=== PATIENT | male | born 1970 | race Caucasian/White ===

== ENCOUNTER 2016-10-27 12:16 | Emergency (ER) | payer SELFPAY ==
--- NOTE | 2016-10-27 12:45 | ED Physician Chart ---
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 He turned after which he had pain in his left mid back and his left shoulder. He did not fall down. There was no other trauma. Allergies:: Allergies Allergy/AdvReac Type Severity Reaction Status Date / Time No Known Allergies Allergy Verified 10/27/16 12:32 Vitals:: Vital Signs - 8 hr 10/27/16 12:25 Temp 98.1 F HR 111 RR 20 BP 151/100 O2 Sat % 99 Historian:: Patient Review:: Nurse's Note Reviewed Review of Systems - Review of Systems General/Constitutional: No fever, No chills Skin: No skin lesions Head: No headache Eyes: No loss of vision ENT: No earache Neck: No neck pain Cardio Vascular: No chest pain Pulmonary: No SOB, No cough GI: No nausea, No vomiting G/U: No dysuria Musculoskeletal: Bone or joint pain Psychiatric: No prior psych history Hematopoietic: No bruising Allergic/Immuno: No urticaria Neurological: No syncope, No focal symptoms Past Medical History - Past Medical History Past Medical History: No significant medical hx Family History: None Social History: Non Smoker, No Alcohol Surgical History: None Psychiatricy History: None Medication: None Physical Exam - Physical Examination General/Constitutional: Well-developed, well-nourished, Alert, No distress Head: Atraumatic Eyes: Lids, conjuctiva normal, PERRL Skin: Nl inspection ENMT: External ears, nose nl, TM canals nl, Nasal exam nl, Lips, teeth, gums nl Neck: No nuchal rigidity Respiratory: Nl effort/Exclusion, Clear to Auscultation, No Wheeze/Rhonchi/Rales Cardio Vascular: RRR GI: No tenderness/rebounding/guarding, No organomegaly, No hernia Other Extremities comments:: Mild left shoulder tenderness without deformity Neuro/Psych: No focal deficits Other Neuro/Psych comments:: Straight leg raising of 90 bilaterally Other Misc comments:: Left mid back tenderness Labs/Radiology/EKG Results - Radiology Results Results: Chest x-ray negative; no cardiomegaly; no infiltrate; ribs normal ED Septic Shock - . Is Septic Shock (SBP<90, OR Lactate>4 mmol\L) present?: No - <6hrs of presentation: Vital Signs: Vital Signs - 8 hr 10/27/16 12:25 Temp 98.1 F HR 111 RR 20 BP 151/100 O2 Sat % 99 Reassessment (Disposition) - Reassessment Reassessment Condition:: Unchanged - Diagnosis Diagnosis:: Back strain; left shoulder strain - Aftercare/Follow up Instructions Aftercare/Follow-Up Instructions:: Refer to Discharge Instructions - Patient Disposition Discharge/Transfer:: Home Condition at Disposition:: Stable, Unchanged
--- NOTE | 2016-10-27 13:25 | Diagnostic Imaging Report ---
CHEST X-RAY: AP view INDICATION: Left mid back pain, minimal trauma COMPARISON: None FINDINGS: Right upper lobe subsegmental atelectasis versus scarring is noted. There is no focal consolidation or pleural effusions The heart is normal in size. The osseous structures are intact. IMPRESSION: No focal consolidation identified. No evidence of pneumothorax. Right upper lobe subsegmental atelectasis versus scarring.
== END 2016-10-27 13:10 | disposition home or self-care (01) ==
LOC: ER 12:16
DX: S46.912A Strain of unspecified muscle, fascia and tendon at shoulder and upper arm level, left arm, initial encounter (principal); S29.012A Strain of muscle and tendon of back wall of thorax, initial encounter; X58.XXXA Exposure to other specified factors, initial encounter; Y93.89 Activity, other specified; Y92.89 Other specified places as the place of occurrence of the external cause; Y99.8 Other external cause status
CPT/HCPCS: 99283; 96372; 71010; J1885; Z7502

== ENCOUNTER 2016-11-09 14:13 | Inpatient (IN) | payer SELFPAY ==
--- NOTE | 2016-11-09 14:39 | ED Physician Chart ---
Chief Complaint/HPI - Patient Information Date Seen:: 11/09/16 Time Seen:: 14:30 Chief Complaint:: Vomiting History of Present Illness:: onset x one week of intermittent N/V/D x 10; denies A/C, Abd. pain, C/P, SOB, cough; admits to LBP x 2 weeks intermittently; denies gait changes, weakness, dizziness, vertigo,H/As, neck pain, or urinary s/s Allergies:: Allergies Allergy/AdvReac Type Severity Reaction Status Date / Time No Known Allergies Allergy Verified 10/27/16 12:32 Vitals:: Vital Signs - 8 hr 11/09/16 14:27 Temp 98.4 F HR 88 RR 16 BP 156/96 O2 Sat % 99 Historian:: Patient, Family Member Review of Systems - Review of Systems General/Constitutional: Fever, Chills, No weight loss, No weakness, No diaphoresis, No edema, No loss of appetite Skin: No skin lesions, No rash, No bruising Head: No headache, No light-headedness Eyes: No loss of vision, No pain, No diplopia ENT: No earache, No nasal drainage, No sore throat, No tinnitus Neck: No neck pain, No swelling, No thyromegaly, No stiffness, No mass noted Cardio Vascular: No chest pain, No palpitations, No PND, No orthopnea, No edema Pulmonary: No SOB, No cough, No sputum, No wheezing GI: Nausea, Vomiting, Diarrhea, No pain, No melena, No hematochezia, Constipation, No hematemesis G/U: No dysuria, No frequency, No hematuria Musculoskeletal: No bone or joint pain, Back pain, No muscle pain Endocrine: No polyuria, No polydipsia Psychiatric: No prior psych history, No depression, No anxiety, No suicidal ideation, No homicidal ideation, No auditory hallucination, No visual hallucination Hematopoietic: No bruising, No lymphadenopathy Allergic/Immuno: No urticaria, No angioedema Neurological: No syncope, No focal symptoms, No weakness, No paresthesia, No headache, No seizure, No dizziness, No confusion, No vertigo Past Medical History - Past Medical History Obtainable: Yes Past Medical History: HTN Family History: Diabetes Melitus, HTN Social History: Smoker, Alcohol, No Drug Use, Surgical History: None Psychiatricy History: None Medication: Reviewed Family Medical History - Family Member mother Ethnicity: Living Status: Hx Family Diabetes: Yes Physical Exam - Physical Examination General/Constitutional: Awake, Well-developed, well-nourished, Alert, No distress, GCS 15, Non-toxic appearing, Ambulatory Head: Atraumatic Eyes: Lids, conjuctiva normal, PERRL, EOMI Skin: Nl inspection, No rash, No skin lesions, No ecchymosis, Well hydrated, No lymphadenopathy ENMT: External ears, nose nl, Nasal exam nl, Lips, teeth, gums nl Neck: Nontender, Full ROM w/o pain, No JVD, No nuchal rigidity, No bruit, No mass, No stridor Respiratory: Nl effort/Exclusion, Clear to Auscultation, No Wheeze/Rhonchi/Rales Cardio Vascular: RRR, No murmur, gallop, rubs, NL S1 S2 GI: No tenderness/rebounding/guarding, No organomegaly, No hernia, Normal BS's, Nondistended, No mass/bruits, No McBurney tenderness : No CVA tenderness Extremities: No tenderness or effusion, Full ROM, normal strength in all extremities, No edema, Normal digits & nails Neuro/Psych: Alert/oriented, DTR's symmetric, Normal sensory exam, Normal motor strength, Judgement/insight normal, Mood normal, Normal gait, No focal deficits Misc: normal gait, Normal back, No paraspinal tenderness Labs/Radiology/EKG Results - Lab Results Results: ETOH: 392; K+: 3.2; Lipase: 103 ED Septic Shock - . Is Septic Shock (SBP<90, OR Lactate>4 mmol\L) present?: No - <6hrs of presentation: Vital Signs: Vital Signs - 8 hr 11/09/16 14:27 Temp 98.4 F HR 88 RR 16 BP 156/96 O2 Sat % 99 Reassessment (Disposition) - Reassessment Reassessment Condition:: Improved - Diagnosis Diagnosis:: Dx: Acute Alcohol Intoxication; Hypokalemia; Pancreatitis; Alcoholicism; Vomiting; Gastritis; AGE; alcoholic Gastritis - Aftercare/Follow up Instructions Aftercare/Follow-Up Instructions:: Counseled pt regarding lab results/diagnosis & need follow up, Counseled pt & family regarding lab results/diagnosis & need follow up - Patient Disposition Discharge/Transfer:: Acute Care w/in this hosp Accepting Physician:: Dr. Mayer Time Called:: 0 Time Responded:: 16:40 Admitted to:: Telemetry Spoke to:: Dr. Mayer Admitting Medical Physician:: Dr. Mayer Condition at Disposition:: Stable, Improved
[2016-11-09] MEDS ORDERED: Sodium Chloride 0.9% 1,000 ML IV ONE (14:43)
--- NOTE | 2016-11-09 15:06 | Diagnostic Imaging Report ---
Exam: Portable summation of chest. HISTORY: Chest pain Findings: Portable upright examination of the chest at 1452 hours was reviewed the study demonstrates no active pulmonic infiltrates or effusions. Mediastinal structures midline the heart is not enlarged bony thorax is intact. IMPRESSION no acute infiltrates
[2016-11-09 15:11] LABS: % BASOPHILS 1.6 % (0.0-2.0); % EOSINOPHILS 0.7 % (0.0-5.0); % MONOCYTES 12.2 % (2.0-10.0); % NEUTROPHILS 53.5 % (40.0-80.0); HEMATOCRIT 36.3 % (39.0-49.0); HEMOGLOBIN 11.5 gm/dL (13.2-17.3); MEAN CORPUSCULAR HEMOGLOBIN 20.5 pg (26.0-30.0); MEAN CORPUSCULAR HGB CONC 31.8 pg (28.0-36.0); MEAN PLATELET VOLUME 7.7 fl; NEUTROPHILE ABSOLUTE 2.7 Th/cmm (1.8-8.0); PLATELET COUNT 85 Th/cmm (150-400); RED BLOOD COUNT 5.62 Mil/cmm (4.30-5.70); RED CELL DISTRIBUTION WIDTH 17.3 % (11.5-20.0)
[2016-11-09 15:33] LABS: ANION GAP 15.9 (7.0-16.0); BUN - UREA NITROGEN 6 mg/dL (7-25); BUN/CREATININE RATIO 8.6; CALCIUM SERUM 9.6 mg/dL (8.6-10.3); CARBON DIOXIDE 26.3 mEq/L (21.0-31.0); CHLORIDE 97 mEq/L (98-107); CHOLESTEROL 231 mg/dL (<200); CREATININE - SERUM 0.7 mg/dL (0.7-1.3); GLUCOSE 104 mg/dL (70-105); POTASSIUM SERUM 3.2 mEq/L (3.5-5.1); SODIUM SERUM 136 mEq/L (136-145); TRIGLYCERIDES 146 mg/dL (<150)
[2016-11-09 15:38] LABS: AMYLASE SERUM 84 U/L (29-103); LIPASE 103 U/L (11-82)
[2016-11-09 15:40] LABS: TROP I 0.02 ng/mL (0.01-0.05)
[2016-11-09 15:47] LABS: PROTHROMBIN TIME (TEST) 10.4 SECONDS (9.5-11.5)
[2016-11-09] MEDS ORDERED: Potassium Chloride 20 mEq ER Tab PO ONE ×2 (16:01→16:17)
[2016-11-09] MEDS ORDERED: Multivitamin Inj 10 ML, Thiamine HCL 100 MG, Magnesium Sulfate 2 GM, Folic Acid 1 MG in... IV ONE (17:00)
[2016-11-09 18:43] LABS: MEAN CELL VOLUME 64.6 fl (80-99)
[2016-11-09 18:45] LABS: BNP < 5.0 pg/mL (5.0-100.0)
[2016-11-09 22:40] LABS: CREATINE KINASE MB 4.4 ng/mL (0.6-6.3)
[2016-11-10 06:25] LABS: HEMATOCRIT 34.3 % (39.0-49.0); HEMOGLOBIN 10.8 gm/dL (13.2-17.3); MEAN CORPUSCULAR HEMOGLOBIN 20.7 pg (26.0-30.0); MEAN CORPUSCULAR HGB CONC 31.5 pg (28.0-36.0); MEAN PLATELET VOLUME 8.2 fl; PLATELET COUNT 74 Th/cmm (150-400); RED BLOOD COUNT 5.23 Mil/cmm (4.30-5.70); RED CELL DISTRIBUTION WIDTH 17.7 % (11.5-20.0); WHITE BLOOD COUNT 4.2 Th/cmm (4.8-10.8)
[2016-11-10 07:06] LABS: ALB/GLOB RATIO 1.3 (1.0-1.8); ALKALINE PHOSPHATASE 121 U/L (34-104); ANION GAP 11.6 (7.0-16.0); BILIRUBIN,TOTAL 1.8 mg/dL (0.3-1.0); BUN - UREA NITROGEN 4 mg/dL (7-25); BUN/CREATININE RATIO 6.7; CALCIUM SERUM 9.1 mg/dL (8.6-10.3); CARBON DIOXIDE 27.4 mEq/L (21.0-31.0); CHLORIDE 101 mEq/L (98-107); CREATININE - SERUM 0.6 mg/dL (0.7-1.3); GLUCOSE 88 mg/dL (70-105); LIPASE 77 U/L (11-82); SGOT 165 U/L (13-39); SGPT/ALT 141 U/L (7-52); SODIUM SERUM 137 mEq/L (136-145)
[2016-11-10 07:25] LABS: MEAN CELL VOLUME 65.6 fl (80-99)
[2016-11-10] MEDS ORDERED: Potassium Chloride 20 mEq ER Tab PO ONE (07:42)
[2016-11-10] MEDS: Lactulose 10 Gm/15 mL 30mL UDC PO SCH ×2 (08:34→17:37)
[2016-11-10] MEDS ORDERED: Pantoprazole 40 mg EC Tab PO SCH (09:00)
[2016-11-10] MEDS ORDERED: Multivitamin Inj 10 ML, Thiamine HCL 100 MG, Magnesium Sulfate 2 GM, Folic Acid 1 MG in... IV SCH (09:27)
[2016-11-10 09:53] LABS: ANISOCYTOSIS 1+; BAND NEUTROPHILE 1 % (0-10); BASOPHIL 2 % (0-3); EOSINOPHIL 4 % (0-5); MICROCYTOSIS 3+; NEUTROPHILS 53 % (40-80); PLATELET ESTIMATE DECREASED PLATELETS (NORMAL); PLATELET MORPHOLOGY NORMAL (NORMAL); TOTAL CELLS COUNTED 100
--- NOTE | 2016-11-10 17:34 | Operative Report ---
DATE OF SURGERY: 11/10/2016 INPATIENT GASTROINTESTINAL PROCEDURE PROCEDURE: EGD with biopsy. REFERRING PHYSICIAN: Dr. Mayer. REASON FOR PROCEDURE: Upper GI bleed. CONSENT: Risks, benefits, alternatives, nature, indication, possible outcomes were discussed. Mentioned bleeding, infection, perforation, , disability, cardiopulmonary distress and arrest, missed lesion and cancers, need for surgery. The patient expressed understanding and provided informed consent. PREOPERATIVE DIAGNOSIS: Upper gastrointestinal bleed. POSTOPERATIVE DIAGNOSIS: Esophagitis. MEDICATIONS: MAC provided by anesthesiologist. DESCRIPTION OF PROCEDURE: The patient was placed on left side. Upper endoscope was advanced from the mouth to second portion of duodenum. Scope brought back in the stomach. Retroflexion view of fundus, cardia, lesser curvature. Scope was straightened and slowly withdrawn through esophagus and biopsies were taken of the esophagus. Scope was then removed. COMPLICATIONS: None. FINDINGS: 1. GE junction at 41 cm with a moderate esophagitis, likely source of bleeding. Biopsies were taken. 2. Normal stomach status post biopsy. 3. Normal duodenum. RECOMMENDATIONS: 1. Follow up on biopsy. 2. Follow H and H, transfuse as needed. 3. Provide the patient with Protonix. 4. Avoid alcohol. 5. Consider repeat EGD in a year. Thank you for allowing me to participate. Please call me if any questions. JOB# [id number]
[2016-11-11 06:14] LABS: HEMATOCRIT 34.2 % (39.0-49.0); MEAN CORPUSCULAR HEMOGLOBIN 20.7 pg (26.0-30.0); MEAN CORPUSCULAR HGB CONC 32.1 pg (28.0-36.0); PLATELET COUNT 67 Th/cmm (150-400); RED BLOOD COUNT 5.31 Mil/cmm (4.30-5.70); RED CELL DISTRIBUTION WIDTH 17.2 % (11.5-20.0)
[2016-11-11 06:16] LABS: MEAN CELL VOLUME 64.4 fl (80-99); WHITE BLOOD COUNT 5.5 Th/cmm (4.8-10.8)
[2016-11-11 06:42] LABS: BUN - UREA NITROGEN 6 mg/dL (7-25); CALCIUM SERUM 9.6 mg/dL (8.6-10.3); CHLORIDE 102 mEq/L (98-107); CREATININE - SERUM 0.6 mg/dL (0.7-1.3); GLUCOSE 98 mg/dL (70-105); MAGNESIUM 2.2 mg/dL (1.9-2.7); SODIUM SERUM 135 mEq/L (136-145)
--- NOTE | 2016-11-11 07:39 | Consultation ---
DATE OF CONSULTATION: 11/10/2016 INPATIENT GASTROINTESTINAL CONSULTATION REFERRING PHYSICIAN: Dr. Mayer. REASON FOR CONSULTATION: Upper GI bleed in the form of hematemesis. HISTORY OF PRESENT ILLNESS: A 46-year-old male who drinks alcohol, came to the hospital with some nausea and vomiting for the last 10 days associated with some coffee-ground emesis, hematemesis. The patient denies having any abdominal pain, melena or hematochezia. PAST MEDICAL HISTORY: Alcohol abuse. PAST SURGICAL HISTORY: None to add recently. FAMILY HISTORY: Noncontributory. SOCIAL HISTORY: Drinks alcohol. No tobacco or IV drug usage. ALLERGIES: None. CURRENT MEDICATIONS: Librium, lactulose, Zestril, Ativan, Zofran, Protonix. REVIEW OF SYSTEMS: Notable for the upper GI bleeding. All other systems were otherwise negative. PHYSICAL EXAMINATION: VITAL SIGNS: Temperature 98.4, breathing 18, pulse of 75, blood pressure 162/88, satting 95%. GENERAL: No apparent distress. EYES: Anicteric, normal conjunctivae. HEENT: Normocephalic, atraumatic. Moist mucous membranes. NECK: Soft, supple. CHEST: Clear. No ____. CARDIOVASCULAR: Regular rate and rhythm. ABDOMEN: Soft, nontender, nondistended. SKIN: Warm, dry. EXTREMITIES: Reveal no cyanosis. LABORATORY DATA: Show a T-bili 1.8, AST 165, ALT 141, alk phos 121, ammonia 101. Lipase 77. Alcohol 392. White count 4.2, hemoglobin 10.8, platelets of 74. 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 Maddrey's score is less than 32. Therefore, ____ glucocorticosteroids or Trental is not needed at this time. The patient can have an endoscopy to evaluate the source of his bleeding. He should avoid entering alcohol and join a long-term rehab program. His ammonia level was elevated, which may suggest that he has underlying liver disease such as cirrhosis for the consumption of alcohol, lactulose is being instituted. PLAN: 1. EGD. 2. Continue Protonix. 3. Follow H and H and transfuse as needed. 4. Continue lactulose. 5. Consider the addition of Xifaxan. 6. Obtain abdominal ultrasound and viral hepatitis panel. Thank you for allowing me to participate. Please call me if any questions. JOB# [id number]
[2016-11-11 07:50] LABS: BAND NEUTROPHILE 0 % (0-10); EOSINOPHIL 3 % (0-5); NEUTROPHILS 50 % (40-80); TOTAL CELLS COUNTED 100
[2016-11-11] MEDS ORDERED: Potassium Chloride 40 MEQ, Lidocaine 1% 20mL Vial 25 MG in Sodium Chloride 0.9% 250 ML IV ONE (07:55)
[2016-11-11] MEDS: Lactulose 10 Gm/15 mL 30mL UDC PO SCH (09:19)
[2016-11-11] MEDS ORDERED: Potassium Chloride 20 mEq ER Tab PO ONE (09:49)
--- NOTE | 2016-11-11 10:23 | Diagnostic Imaging Report ---
Ultrasound abdomen HISTORY: Hepatitis COMPARISON: None Technique: Sonography of the abdomen was performed in multiple planes. FINDINGS: Exam is limited due to body habitus. The liver demonstrates mild increased echogenicity with no evidence of focal lesions. The liver measures 16.9 cm. There is suggestion of small amount of gallbladder sludge. No discrete gallstones identified. The gallbladder wall measures 3 mm. The common bile duct measures 4 mm. Evaluation of the pancreas is limited due to bowel gas. The right kidney measures 12.2 cm. No evidence of focal lesions or hydronephrosis. The left kidney measures 12.5 cm. No evidence of focal lesions or hydronephrosis. The spleen measures 14.4 cm. IMPRESSION: Small amount of gallbladder sludge suspected. No discrete gallstones identified. Borderline prominent gallbladder wall is noted, nonspecific. Mild splenomegaly. Liver at the upper limits of normal in size. There is mild increased echogenicity of the liver which may be due to underlying hepatocellular disease, please correlate with liver function tests.
[2016-11-11 11:13] LABS: HEP B CORE IGM Negative (Negative); HEP C ANTIBODY 0.1 s/co ratio (0.0-0.9)
[2016-11-12 11:14] LABS: FERRITIN 1607 ng/mL (30-400); IRON SATURATION 83 % (15-55); TIBC (LCI) 271 ug/dL (250-450); UIBC 46 ug/dL (111-343)
== END 2016-11-11 13:30 | disposition home or self-care (01) | DRG 377 ==
LOC: ER 14:13 → TELE 16:55
PROVIDERS: ADMIT Internal Medicine; ATTEND Internal Medicine
PROC: 0DB58ZX Excision of Esophagus, Via Natural or Artificial Opening Endoscopic, Diagnostic (ICD-10-PCS; principal; 2016-11-10)
DX: K92.2 Gastrointestinal hemorrhage, unspecified (principal); K85.90 Acute pancreatitis without necrosis or infection, unspecified; D61.818 Other pancytopenia; E72.20 Disorder of urea cycle metabolism, unspecified; K70.10 Alcoholic hepatitis without ascites; F10.129 Alcohol abuse with intoxication, unspecified; I10 Essential (primary) hypertension; E87.6 Hypokalemia; K20.9 Esophagitis, unspecified; F17.210 Nicotine dependence, cigarettes, uncomplicated; K29.20 Alcoholic gastritis without bleeding; Y90.8 Blood alcohol level of 240 mg/100 ml or more; Z82.49 Family history of ischemic heart disease and other diseases of the circulatory system; Z83.3 Family history of diabetes mellitus
CPT/HCPCS: 36415-UA; 71010-TC; 76700-TC; 80048-TC; 80053-TC; 80061-TC; 80074-90; 80320-TC; 82140-TC; 82150-TC; 82550-TC; 82553; 82728-90; 83540-90; 83550-90; 83690-TC; 83735-TC; 83880-TC; 84484-TC; 85007-TC; 85025-TC; 85027-TC; 85610-TC; 88305-90; 88312-90; 88313-90; 93005; C9113; J2001; J2405; J3411; J3475; J3480; J7030; X6598; Z7610

== ENCOUNTER 2016-12-05 00:19 | Emergency (ER) | payer SELFPAY ==
--- NOTE | 2016-12-05 00:58 | ED Physician Chart ---
Chief Complaint/HPI - Patient Information Date Seen:: 12/05/16 Time Seen:: 12:40 Chief Complaint:: Pt has an alcohol problem. History of Present Illness:: Brought in by his nephew Mr. Flakito Deleon because pt has been consuming alcohol. Pt speaks adequate Englsih but is primarily Kinyarwanda speaking. Interpretation is also provided by his nephew Mr. Flakito Deleon per pt's request. Pt has no specific complaint. Pt denies any bodily pain. Pt has h/o HTN but apparently he has not been compliant with his antihypertensive medical therapy. Pt has been informed about the importance of being compliant with his antihypertensive therapy, as well as the risks associated with uncontrolled or poorly controlled HTN. He has also been explained about health risks associated with chronic alcohol use. He has been encouraged to enroll in an alcohol detox program. Pt was asked about the name of his PCP, the medication he is supposed to take, and the amount of alcohol he consumed earlier. Pt became upset. Pt got up of the bed on his own quickly without assistance. He then put on his own shoes and just walked out of the ER steadily and swiftly. Pt was alert and oriented x 3. Prior to his departure. Pt's repeat BP was 158/99. His nephew Mr. Flakito Deleon stated that he will drive pt home and care for him. He will take pt to his PCP for further evaluation and treatment later today. Mr. Deleon has been informed that pt may return here for further evaluation/management if he changes his mind and decides to return. Pt eloped without completion of this ER visit. Allergies:: Allergies Allergy/AdvReac Type Severity Reaction Status Date / Time No Known Allergies Allergy Verified 12/05/16 00:30 Vitals:: Vital Signs - 8 hr 12/05/16 00:20 Temp 98.1 F HR 91 RR 20 BP 181/108 O2 Sat % 93 Family Medical History - Family Member mother History Unknown: Yes Ethnicity: Living Status: Hx Family Diabetes: Yes ED Septic Shock - . Is Septic Shock (SBP<90, OR Lactate>4 mmol\L) present?: No - <6hrs of presentation: Vital Signs: Vital Signs - 8 hr 12/05/16 00:20 Temp 98.1 F HR 91 RR 20 BP 181/108 O2 Sat % 93 Reassessment (Disposition) - Diagnosis Diagnosis:: H/O alcoholism H/O HTN - Patient Disposition Discharge/Transfer:: [facility] Time:: 01:14 Condition at Disposition:: Stable
== END 2016-12-05 01:14 | disposition left against medical advice (07) ==
LOC: ER 00:19
DX: F10.20 Alcohol dependence, uncomplicated (principal); I10 Essential (primary) hypertension
CPT/HCPCS: Z7502

== ENCOUNTER 2017-08-18 20:25 | Emergency (ER) | payer MEDICAID ==
[2017-08-18 20:50] LABS: HEMOGLOBIN 11.6 gm/dL (12-16); MEAN CORPUSCULAR HEMOGLOBIN 21.6 pg (26.0-30.0); RED BLOOD COUNT 5.35 Mil/cmm (4.30-5.70)
[2017-08-18 20:57] LABS: % EOSINOPHILS 1.4 % (0.0-5.0); % LYMPHOCYTES 47.9 % (20.0-50.0); % NEUTROPHILS 41.7 % (40.0-80.0); ALB/GLOB RATIO 1.2 (1.0-1.8); ALBUMIN 4.5 gm/dL (4.2-5.5); ALKALINE PHOSPHATASE 155 U/L (34-104); ANION GAP 16.3 (7.0-16.0); BILIRUBIN,TOTAL 1.2 mg/dL (0.3-1.0); BUN - UREA NITROGEN 7 mg/dL (7-25); CALCIUM SERUM 9.5 mg/dL (8.6-10.3); CHLORIDE 101 mEq/L (98-107); CREATININE - SERUM 0.7 mg/dL (0.7-1.3); EOSINOPHILE ABSOLUTE 0.1 Th/cmm (0.1-0.4); GFR AFRICAN-AMERICAN > 60.0 ml/min (>90); GFR NON AFRICAN-AMERICAN > 60.0 ml/min; GLUCOSE 98 mg/dL (70-105); HEMATOCRIT 35.9 % (41.0-60); LYMPHOCYTE ABSOLUTE 3.3 Th/cmm (1.5-3.0); MEAN CORPUSCULAR HGB CONC 32.3 pg (28.0-36.0); MONOCYTE ABSOLUTE 0.6 Th/cmm (0.3-1.0); NEUTROPHILE ABSOLUTE 2.9 Th/cmm (1.8-8.0); PLATELET COUNT 118 Th/cmm (150-400); POTASSIUM SERUM 3.3 mEq/L (3.5-5.1); RED CELL DISTRIBUTION WIDTH 16.2 % (11.5-20.0); SGOT 103 U/L (13-39); SGPT/ALT 65 U/L (7-52); SODIUM SERUM 139 mEq/L (136-145); TOTAL PROTEIN,SERUM 8.4 gm/dL (6.0-8.3); WHITE BLOOD COUNT 6.9 Th/cmm (4.8-10.8)
[2017-08-18 21:10] LABS: MEAN CELL VOLUME 67.1 fl (80-99)
[2017-08-18] MEDS ORDERED: Potassium Chloride Elixir 20 mEq /15 mL UDC PO ONE (21:18)
--- NOTE | 2017-08-18 21:32 | ED Physician Chart ---
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 HE DENIES LIVER DISEASE, PREVIOUS RIB FRACTURES OR JOB INJURY. HE ADMITS ONLY TO HYPERTENSION AND DENIES DIABETES. Allergies:: Allergies Allergy/AdvReac Type Severity Reaction Status Date / Time No Known Allergies Allergy Verified 12/05/16 00:30 Vitals:: Vital Signs - 8 hr 08/18/17 20:30 Temp 98.2 F HR 82 RR 18 BP 106/72 O2 Sat % 100 Historian:: Patient Review:: Nurse's Note Reviewed ED Review of Systems - Review of Systems General/Constitutional: No fever, No chills, No weight loss, No weakness, No diaphoresis, No edema, No loss of appetite Skin: No skin lesions, No rash, No bruising Head: No headache, No light-headedness Eyes: No loss of vision, No pain, No diplopia ENT: No earache, No nasal drainage, No sore throat, No tinnitus Neck: No neck pain, No swelling, No thyromegaly, No stiffness, No mass noted Cardio Vascular: No chest pain, No palpitations, No PND, No orthopnea, No edema Pulmonary: No SOB, No cough, No sputum, No wheezing GI: No nausea, No vomiting, No diarrhea, No pain, No melena, No hematochezia, No constipation, No hematemesis G/U: No dysuria, No frequency, No hematuria Musculoskeletal: No bone or joint pain, No back pain, No muscle pain, Other ( RIGHT RIB PAIN ON PALPATION,) Endocrine: No polyuria, No polydipsia Psychiatric: No prior psych history, No depression, No anxiety, No suicidal ideation Hematopoietic: No bruising, No lymphadenopathy Allergic/Immuno: No urticaria, No angioedema Neurological: No syncope, No focal symptoms, No weakness, No paresthesia, No headache, No seizure, No dizziness, No confusion, No vertigo ED Past Medical History - Past Medical History Obtainable: Yes Past Medical History: HTN Family History: None Social History: Non Smoker, Alcohol, No Drug Use, , Employed Surgical History: None Psychiatricy History: None Medication: Reviewed Family Medical History - Family Member mother History Unknown: Yes Ethnicity: Living Status: Hx Family Diabetes: Yes ED Physical Exam - Physical Examination General/Constitutional: Awake, Well-developed, well-nourished, Alert, No distress, GCS 15, Non-toxic appearing, Ambulatory Head: Atraumatic Eyes: Lids, conjuctiva normal, PERRL, EOMI Skin: Nl inspection, No rash, No skin lesions, No ecchymosis, Well hydrated, No lymphadenopathy ENMT: External ears, nose nl, Nasal exam nl, Lips, teeth, gums nl Neck: Nontender, Full ROM w/o pain, No JVD, No nuchal rigidity, No bruit, No mass, No stridor Respiratory: Nl effort/Exclusion, Clear to Auscultation, No Wheeze/Rhonchi/Rales Other Respiratory comments:: RIGHT RIB TENDERNESS AT THE 7TH AND 8TH ANTERIOR RIB AREA. Cardio Vascular: RRR, No murmur, gallop, rubs, NL S1 S2 GI: No tenderness/rebounding/guarding (TENDERNESS IN THE LIVER AREA), No organomegaly, No hernia, Normal BS's, Nondistended, No mass/bruits, No McBurney tenderness : No CVA tenderness Extremities: No tenderness or effusion, Full ROM, normal strength in all extremities, No edema, Normal digits & nails Neuro/Psych: Alert/oriented, DTR's symmetric, Normal sensory exam, Normal motor strength, Judgement/insight normal, Mood normal, Normal gait, No focal deficits Misc: Normal back, No paraspinal tenderness ED Labs/Radiology/EKG Results - Lab Results Results: Laboratory Tests 08/18/17 08/18/17 08/18/17 20:36 20:36 20:36 WBC 6.9 RBC 5.35 Hgb 11.6 L Hct 35.9 L MCV 67.1 L MCH 21.6 L MCHC Differential 32.3 RDW 16.2 Plt Count 118 L MPV 8.0 Neutrophils % 41.7 Lymphocytes % 47.9 Monocytes % 9.0 Eosinophils % 1.4 Basophils % 0.0 Sodium 139 Potassium 3.3 L Chloride 101 Carbon Dioxide 25.0 Anion Gap 16.3 H BUN 7 Creatinine 0.7 Est GFR ( Amer) > 60.0 Est GFR (Non-Af Amer) > 60.0 BUN/Creatinine Ratio 10.0 Glucose 98 Calcium 9.5 Total Bilirubin 1.2 H AST 103 H ALT 65 H Alkaline Phosphatase 155 H Troponin I 0.03 Total Protein 8.4 H Albumin 4.5 Globulin 3.9 Albumin/Globulin Ratio 1.2 Ethyl Alcohol 08/18/17 20:36 WBC RBC Hgb Hct MCV MCH MCHC Differential RDW Plt Count MPV Neutrophils % Lymphocytes % Monocytes % Eosinophils % Basophils % Sodium Potassium Chloride Carbon Dioxide Anion Gap BUN Creatinine Est GFR ( Amer) Est GFR (Non-Af Amer) BUN/Creatinine Ratio Glucose Calcium Total Bilirubin AST ALT Alkaline Phosphatase Troponin I Total Protein Albumin Globulin Albumin/Globulin Ratio Ethyl Alcohol 368 H - Radiology Results Results: CT SCAN OF THE CHEST =NAD ED Assessment - Assessment General Assessment: RIGHT CHEST WALL CONTUSION ALCOHOL INTOXICATION ED Septic Shock - . Is Septic Shock (SBP<90, OR Lactate>4 mmol\L) present?: No - <6hrs of presentation: Vital Signs: Vital Signs - 8 hr 08/18/17 20:30 Temp 98.2 F HR 82 RR 18 BP 106/72 O2 Sat % 100 ED Reassessment (Disposition) - Reassessment Reassessment Condition:: Improved - Diagnosis Diagnosis:: CHEST WALL CONTUSION ALCOHOL INTOXICATION - Aftercare/Follow up Instructions Aftercare/Follow-Up Instructions:: Counseled pt regarding lab results/diagnosis & need follow up, Refer to Discharge Instructions, Counseled pt & family regarding lab results/diagnosis & need follow up - Patient Disposition Discharge/Transfer:: Home Condition at Disposition:: Improved ED Discharge Plan - Patient Disposition Admit/Discharge/Transfer: PT DISCHARGED HOME Condition at Disposition: Improved
[2017-08-18] MEDS ORDERED: KCL 20mEq/100mL Premix 0 MEQ/0 ML PIGGYBACK IV ONE (22:06)
[2017-08-18] MEDS ORDERED: Potassium Chloride 20 mEq ER Tab PO ONE (22:08)
[2017-08-18] MEDS ORDERED: Potassium Chloride Elixir 20 mEq /15 mL UDC ONE (22:14)
--- NOTE | 2017-08-19 09:25 | Diagnostic Imaging Report ---
CT scan of the chest with intravenous contrast History: Trauma Total DLP equals 233 CTDI equals 6.1 Axial sections were obtained from a level above the clavicles down to a level below the diaphragm. Exam the mediastinum demonstrates preservation of normal fat planes about the major vascular landmarks. No abnormal masses. Specifically no lymphadenopathy. No abnormal focal pulmonary parenchymal masses or nodules are seen. The hilar regions appear normal. No pleural effusions are seen. Impression: No acute abnormalities
== END 2017-08-18 23:17 | disposition left against medical advice (07) ==
LOC: ER 20:25
DX: S20.211A Contusion of right front wall of thorax, initial encounter (principal); F10.129 Alcohol abuse with intoxication, unspecified; I10 Essential (primary) hypertension; X58.XXXA Exposure to other specified factors, initial encounter; Y93.89 Activity, other specified; Y92.89 Other specified places as the place of occurrence of the external cause; Y99.0 Civilian activity done for income or pay
CPT/HCPCS: 99285; 71250; 84484; 36415; 85025; 80320; 80053; J1885; J3480